=== PATIENT | female | born 1940 | race Caucasian/White ===

== ENCOUNTER 2016-09-30 17:26 | Emergency (ER) | payer MEDICARE, MEDICAID ==
[~2016-09-30] VITALS: Ht 154.9 cm; Wt 67.0 kg
[2016-09-30 17:28] VITALS: BP 206/95; PULSE 72; RESP 18; TEMP 97.5; O2SAT 99
[2016-09-30 17:52] VITALS: BP 179/98; PULSE 80; RESP 18; O2SAT 100
--- NOTE | 2016-09-30 18:09 | PD ---
HPI Chief Complaint: Fall Time Seen by Provider: 18:06 Travel History International Travel<30 days: No Contact w/Intl Traveler<30days: No Traveled to known affect area: No History of Present Illness HPI 75-year-old right-hand dominant female with history of untreated HTN presents to the ED for evaluation of facial laceration sustained after a mechanical fall today. Patient states that she was attempting to walk up a few steps to her house. She states that she tripped and fell, striking the left side of her face on the edge of the concrete riser. She denies loss of consciousness. She has been ambulatory since the accident. On presentation she complains of pain over the left eye and pain in the left wrist. Denies headache, dizziness, vision changes, malocclusion, back pain, pain in the lower extremities. She states last tetanus immunization was ~30 years ago. PFSH Past Medical History Medical History: Denies Significant Hx Tetanus Vaccination: > 5 Years Influenza Vaccination: No ?: Not Menopausal: Yes Past Surgical History Surgical History: No Previous Surgery Social History Alcohol Use: Yes (OCCAS) Tobacco Use: No Substance Use: No Allergies-Medications (Allergen,Severity, Reaction): Coded Allergies: Penicillin (Verified Allergy, Severe, HIVES, 09/30/16) Reported Meds & Prescriptions Reported Meds & Active Scripts Active No Active Prescriptions or Reported Medications Review of Systems Except as stated in HPI: all other systems reviewed are Neg Physical Exam Narrative GENERAL: Well-nourished, well-developed white female in no acute distress. SKIN: Warm and dry. There is a 5 cm laceration just above the crease of the left eyelid. Faint ecchymosis over the right anterior knee. A thorough exam of the skin reveals no other erythema, abrasion, laceration, or ecchymosis. HEAD: Normocephalic. Atraumatic. No bony step-offs. No gonzalez sign. No raccoon eyes. NEUROLOGICAL: Awake and alert. Cranial nerves II through XII intact. Motor and sensory grossly within normal limits. Normal speech. EYES: No scleral icterus. No injection or drainage. PERRLA. EOMI. ENT: Pearly joy tympanic membranes bilaterally. No hemotympanum. Nasal mucosa is moist. Oropharynx without erythema, edema or exudate. NECK: Supple, trachea midline. No JVD or lymphadenopathy. No midline tenderness to palpation. The patient retains full, active, painless range of motion of the neck. CARDIOVASCULAR: Regular rate and rhythm without murmurs, gallops, or rubs. 2+ DP and radial pulses bilaterally. RESPIRATORY: Breath sounds clear and equal bilaterally. No accessory muscle use. GASTROINTESTINAL: Abdomen soft, non-tender, nondistended. + Bowel sounds MUSCULOSKELETAL: No cyanosis, or edema. Tender to palpation of the left distal radius and ulna. There is mild visible deformity. Patient has strong finger to thumb opposition on all digits of the left hand. Neurovascularly intact. Full, active range of motion, strength 5/5, neurovascularly intact in all other extremities. BACK: Nontender without obvious deformity. No CVA tenderness. No midline tenderness to palpation. Data Data Last Documented VS Vital Signs Date Time Temp Pulse Resp B/P Pulse Ox O2 Delivery O2 Flow Rate FiO2 09/30/16 19:05 95 16 209/90 100 Room Air 09/30/16 17:[address] Brain W/O Iv Contrast(Rout) (09/30/16 18:04) Ct Cerv Spine W/O Contrast (09/30/16 18:04) Ct Facial Bones W/O Iv Cont (09/30/16 18:04) Wrist, Complete (Fop8ato) (09/30/16 18:04) Ice/Cold Pack (09/30/16 18:04) Tetanus/Diphtheria Tox Adult (Tetanus/Di (09/30/16 18:15) Lidocaine 1% Inj (50 Ml) (Xylocaine 1% I (09/30/16 18:15) Fiberglass Sugartong Sp Ad Arm (09/30/16 ) Sling Cradle Arm (09/30/16 ) Mandatory Outpatient Referral (09/30/16 20:08) [facility] Medical Decision Making Medical Screen Exam Complete: Yes Emergency Medical Condition: Yes Differential Diagnosis Facial laceration versus facial fracture versus skull fracture versus ICH versus wrist fracture versus need for tetanus immunization versus other Narrative Course 75-year-old right-hand dominant female with history of untreated HTN presents to the ED for evaluation of facial laceration sustained after a mechanical fall today. Patient states that she was attempting to walk up a few steps to her house. She states that she tripped and fell, striking the left side of her face on the edge of the concrete riser. She denies loss of consciousness. She has been ambulatory since the accident. On presentation she complains of pain over the left eye and pain in the left wrist. She states last tetanus immunization was ~30 years ago. Vitals reviewed. Patient is hypertensive throughout her stay but asymptomatic. I suspect this is her baseline as she does report untreated hypertension. Skull exam reveals a $0.05 irregular laceration over the left eye. There is mild visible deformity and tenderness to palpation of the left wrist. Patient retains range of motion and is neurovascularly intact. The remaining physical exam is unremarkable. I offered the patient pain medications which she declined. CT of the head, cervical spine and facial bones are all negative for acute fracture or bleeding. Left wrist x-ray reveals comminuted nondisplaced fracture of the distal radius and a chip fracture of the ulnar styloid. Tetanus immunization was updated. Laceration repair was performed. Please see my procedure note for details. Splint was applied to the left wrist. The patient is instructed to monitor the wound for signs of infection, follow-up with orthopedist for evaluation of the wrist fracture. She declined prescription pain medications. She indicated understanding of instructions and is agreeable to the care plan. She is stable and discharged home. Procedures Procedure Narrative LACERATION LOCATION: Just superior to the crease of the left eyelid LENGTH: 5 cm NUMBER OF STITCHES/JACK: 2 interrupted deep sutures, one running subcuticular suture REPAIR: The area of the laceration was prepped with Betadine and sterilely draped. The laceration was infiltrated with 1% lidocaine. The wound was copiously irrigated and explored without evidence of foreign body, tendon injury or neurovascular injury. The wound was closed using 4-0 Vicryl and 5-0 Monocryl. This was a 2 layer repair. A sterile dressing was applied. The patient was advised to keep the dressing clean and dry. Patient tolerated the procedure well. Diagnosis Primary Impression: Facial laceration Qualified Code: S01.81XA - Facial laceration, initial encounter Additional Impressions: Left wrist fracture Qualified Code: S62.102A - Left wrist fracture, closed, initial encounter Need for immunization against tetanus alone Referrals: Alexsander Craven MD Patient Instructions: Facial Laceration (ED), General Instructions Additional Instructions: Rest, hydrate. Keep the wound clean, dry and covered. The Steri-Strips will fall off on their own as the wound heals. Follow-up with Dr. Craven as discussed. Return to the ED for any urgent or emergent medical condition. Med/Other Pt SpecificInfo: Prescription(s) given Scripts No Active Prescriptions or Reported Meds Disposition: 01 DISCHARGE HOME Condition: Stable Ester Mera Sep 30, 2016 18:09
[2016-09-30] MEDS ORDERED: LIDOCAINE HCL 1% 50 ML VIAL INFIL ONE (18:15)
[2016-09-30] MEDS ORDERED: TETANUS/DIPHTHERIA TOXOID ADULT 0.5 ML VIAL IM ONE (18:15)
--- NOTE | 2016-09-30 18:31 | RADRPT ---
EXAM DATE/TIME: 09/30/2016 18:18 [facility] COMPARISON: No previous studies available for comparison. INDICATIONS : Injury to head due to fall. RADIATION DOSE: 56.35 CTDIvol (mGy) MEDICAL HISTORY : Hypertension. SURGICAL HISTORY : None. ENCOUNTER: Initial ACUITY: 1 day PAIN SCALE: 3/10 LOCATION: Bilateral cranial TECHNIQUE: Multiple contiguous axial images were obtained of the head. Using automated exposure control and adj ustment of the mA and/or kV according to patient size, radiation dose was kept as low as reasonably a chievable to obtain optimal diagnostic quality images. FINDINGS: CEREBRUM: The ventricles are normal for age. Diffuse chronic small vessel ischemic changes present. No evidence of midline shift, mass lesion, hemorrhage or acute infarction. No extra-axial fluid collections are seen. POSTERIOR FOSSA: The cerebellum and brainstem are intact. The 4th ventricle is midline. The cerebellopontine angle i s unremarkable. EXTRACRANIAL: The visualized portion of the orbits is intact. SKULL: The calvaria is intact. No evidence of skull fracture. CONCLUSION: Negative trauma study. Edi Azar MD on September 30, 2016 at 18:28 Board Certified Radiologist. This report was verified electronically.
--- NOTE | 2016-09-30 18:53 | RADRPT ---
EXAM DATE/TIME: 09/30/2016 18:23 [facility] COMPARISON: No previous studies available for comparison. INDICATIONS : Injury on left to face by upper eye region due to fall. RADIATION DOSE: 21.96 CTDIvol (mGy) MEDICAL HISTORY : Hypertension. SURGICAL HISTORY : None. ENCOUNTER: Initial ACUITY: 1 day PAIN SCORE: 4/10 LOCATION: Bilateral facial region. TECHNIQUE: Volumetric scanning of the facial bones was performed. Using automated exposure contr ol and adjustment of the mA and/or kV according to patient size, radiation dose was kept as low as re asonably achievable to obtain optimal diagnostic quality images. FINDINGS: ORBITS: The orbital and infraorbital osseous structures are intact. The retroconal structures chan ve a normal configuration. No radiopaque foreign bodies are seen. NASAL BONE: The nasal bone and maxillary spine are intact ZYGOMATIC ARCHES: Symmetric without evidence of fracture. SINUSES: The maxillary, ethmoid and frontal sinuses are intact. No air-fluid levels seen. NASAL CAVITY: The nasal septum is intact and midline. The lacrimal ducts are intact. SOFT TISSUES: No radiopaque foreign bodies seen. There is mild soft tissue swelling over the left frontal bone and orbit. INTRACRANIAL: No intracranial air seen. CRIBIFORM PLATE: Grossly intact. CONCLUSION: Soft tissue swelling over the left frontal bone and orbit with no evidence of fractur e. Edi Azar MD on September 30, 2016 at 18:50 Board Certified Radiologist. This report was verified electronically.
--- NOTE | 2016-09-30 18:56 | RADRPT ---
EXAM DATE/TIME: 09/30/2016 18:21 [facility] COMPARISON: No previous studies available for comparison. INDICATIONS : Injury to neck due to fall. RADIATION DOSE: 20.37 CTDIvol (mGy) MEDICAL HISTORY : Hypertension. SURGICAL HISTORY : None. ENCOUNTER: Initial ACUITY: 1 day PAIN SCALE: 4/10 LOCATION: Bilateral neck region. TECHNIQUE: Volumetric scanning of the cervical spine was performed. Multiplanar reconstructions in the sagittal, coronal and oblique axial planes were performed. Using automated exposure control and adjustment o f the mA and/or kV according to patient size, radiation dose was kept as low as reasonably achievable to obtain optimal diagnostic quality images. FINDINGS: The sagittal reconstructions demonstrate normal alignment and normal prevertebral soft tissues. The d ens is intact and there is a normal atlantoaxial relationship. Mild degenerative changes present at t he C5-6 level. There are degenerative changes involving the left axilla joint. The axial images demonstrate that the vertebral bodies and posterior elements are intact. The soft ti ssues are within normal limits. There is no evidence of acute fracture or malalignment. There are deg enerative changes involving the facet joints. CONCLUSION: Negative trauma CT. Edi Azar MD on September 30, 2016 at 18:52 Board Certified Radiologist. This report was verified electronically.
[2016-09-30 19:05] VITALS: BP 209/90; PULSE 95; RESP 16; O2SAT 100
--- NOTE | 2016-09-30 19:22 | RADRPT ---
EXAM DATE/TIME: 09/30/2016 19:03 [facility] COMPARISON: No previous studies available for comparison. INDICATIONS : Left wrist pain and swelling. MEDICAL HISTORY : Hypertension. SURGICAL HISTORY : None. ENCOUNTER: Initial ACUITY: 1 day PAIN SCORE: 2/10 LOCATION: Left wrist. FINDINGS: AP, lateral and oblique views of the left wrist were obtained and demonstrate a mildly comminuted tra nsverse fracture through the distal radius. There is no significant distraction or impaction. There a re ill-defined fracture lines which may extend into the radiocarpal joint. There is small fracture of the distal ulnar styloid which is nondisplaced. Degenerative changes are noted in the carpus with in tact carpal bones. There is soft tissue swelling surrounding the wrist. There is diffuse osteopenia. CONCLUSION: Mildly comminuted nondisplaced fracture of the distal radius. There is a small nondis placed fracture through the ulnar styloid. Edi Azar MD on September 30, 2016 at 19:19 Board Certified Radiologist. This report was verified electronically.
== END 2016-09-30 20:20 | disposition home or self-care (01) ==
LOC: NEPC 17:26
DX: S01.81XA Laceration without foreign body of other part of head, initial encounter (principal); S52.502A Unspecified fracture of the lower end of left radius, initial encounter for closed fracture; S52.612A Displaced fracture of left ulna styloid process, initial encounter for closed fracture; I10 Essential (primary) hypertension; W01.118A Fall on same level from slipping, tripping and stumbling with subsequent striking against other sharp object, initial encounter; Y92.009 Unspecified place in unspecified non-institutional (private) residence as the place of occurrence of the external cause; Z23 Encounter for immunization; Z88.0 Allergy status to penicillin
CPT/HCPCS: 12052; 29125; 70450; 70486; 72125; 73110; 90471; 90714